=== PATIENT | male | born 1995 | race Caucasian/White ===

== ENCOUNTER 2018-04-01 04:13 | Emergency (ER) | payer OTHER ==
[~2018-04-01] VITALS: Ht 185.4 cm; Wt 88.5 kg
[~2018-04-01 04:13] MED LIST: BACTRIM DS TAB1 EACH PO; HYDROCODONE-AP1 EAC6 PO; PENICILLIN V P500 MG PO
[2018-04-01 04:31] LABS: URINE BILIRUBIN NEGATIVE (Negative); URINE BLOOD NEGATIVE (Negative); URINE CLARITY CLEAR; URINE COLOR YELLOW; URINE GLUCOSE-RANDOM NEGATIVE (Negative); URINE KETONES NEGATIVE (Negative); URINE LEUKOCYTES NEGATIVE (Negative); URINE NITRITE NEGATIVE (Negative); URINE PROTEIN 1+ (Negative); URINE SPECIFIC GRAVITY >= 1.030 (1.005-1.030); URINE UROBILINOGEN 0.2 E.U./dl (0.2-1.0)
[2018-04-01 04:37] LABS: AMP/METHAMP Negative (Negative); BARBITURATES Negative (Negative); BENZODIAZEPINES Negative (Negative); COCAINE Negative (Negative); METHADONE Negative (Negative); OPIATES Negative (Negative); PCP Negative (Negative); THC Negative (Negative)
[2018-04-01 04:45] LABS: HEMATOCRIT 45.4 % (42.0-52.0); HEMOGLOBIN 15.5 gm/dL (14.0-18.0); MCH 31.6 pg (26.0-34.0); MCHC 34.2 g/dL (28.0-37.0); MCV 92.2 fL (80.0-100.0); MPV 9.4 fl. (7.2-11.1); RBC 4.92 mil/uL (4.50-6.00); RDW-CV 15.2 % (10.5-14.5); WBC 5.7 thou/uL (4.0-11.0)
[2018-04-01 04:51] LABS: CALCIUM 9.2 mg/dL (8.5-10.1); CREATININE 1.1 mg/dL (0.6-1.3)
[2018-04-01 05:01] LABS: ALBUMIN 4.2 g/dL (3.4-5.0); TOTAL BILIRUBIN 0.4 mg/dL (<0.1-1.0); TOTAL PROTEIN 8.4 g/dL (6.4-8.2)
[2018-04-01 05:09] LABS: ALCOHOL 278 mg/dL (<10); SALICYLATE 4.9 mg/dL (2.8-20.0)
[2018-04-01 05:13] LABS: ACETAMINOPHEN < 2 ug/mL (10-30)
[2018-04-01 22:32] VITALS: BP 130/81
== END 2018-04-01 22:30 ==
LOC: M.ERS 04:13
PROVIDERS: Personal Emergency Response Attendant
DX: R45.851 Suicidal ideations (principal); F17.210 Nicotine dependence, cigarettes, uncomplicated; Z59.0 Homelessness

== ENCOUNTER 2018-08-16 07:30 | Emergency (ER) | payer OTHER ==
[~2018-08-16] VITALS: Ht 185.4 cm; Wt 88.5 kg
[2018-08-16 07:31] VITALS: BP 148/98
== END 2018-08-16 07:45 | disposition home or self-care (01) ==
LOC: M.ERS 07:30
DX: F15.10 Other stimulant abuse, uncomplicated (principal); F17.210 Nicotine dependence, cigarettes, uncomplicated

== ENCOUNTER 2019-01-12 02:32 | Emergency (ER) | payer OTHER ==
[~2019-01-12] VITALS: Ht 175.3 cm; Wt 99.8 kg
[2019-01-12 03:02] LABS: ABSOLUTE BASOPHILS 0.1 thou/uL (0.0-0.2); ABSOLUTE LYMPHOCYTES 2.1 thou/uL (0.8-5.3); ABSOLUTE MONOCYTES 0.5 thou/uL (0.0-1.2); ABSOLUTE NEUTROPHILS 3.8 thou/uL (1.6-8.1); BASOPHILS 0.8 %; EOSINOPHILS 0.7 %; HEMATOCRIT 44.8 % (42.0-52.0); HEMOGLOBIN 15.5 gm/dL (14.0-18.0); LYMPHOCYTES 31.8 %; MCH 32.2 pg (26.0-34.0); MCHC 34.7 g/dL (28.0-37.0); MCV 92.7 fL (80.0-100.0); MONOCYTES 8.2 %; MPV 10.2 fl. (7.2-11.1); NUCLEATED RBCS 0 /100WBC; PLATELET COUNT* 200 thou/uL (150-400); POLYS 58.5 %; RBC 4.83 mil/uL (4.50-6.00); RDW-CV 14.4 % (10.5-14.5); WBC 6.5 thou/uL (4.0-11.0)
[2019-01-12 03:17] LABS: ALBUMIN 3.9 g/dL (3.4-5.0); CALCIUM 8.6 mg/dL (8.5-10.1); CREATININE 1.2 mg/dL (0.6-1.3); POTASSIUM 3.5 mmol/L (3.5-5.1); TOTAL BILIRUBIN 0.4 mg/dL (<0.1-1.0); TOTAL PROTEIN 7.4 g/dL (6.4-8.2)
[2019-01-12 03:22] LABS: ALCOHOL 332 mg/dL (<10); SALICYLATE < 2.8 mg/dL (2.8-20.0)
[2019-01-12 03:24] LABS: ACETAMINOPHEN < 2 ug/mL (10-30)
[2019-01-12 21:01] LABS: URINE BILIRUBIN NEGATIVE (Negative); URINE BLOOD NEGATIVE (Negative); URINE CLARITY CLEAR; URINE COLOR YELLOW; URINE GLUCOSE-RANDOM NEGATIVE (Negative); URINE KETONES NEGATIVE (Negative); URINE LEUKOCYTES-REFLEX NEGATIVE (Negative); URINE NITRITE-REFLEX NEGATIVE (Negative); URINE PROTEIN NEGATIVE (Negative); URINE SPECIFIC GRAVITY 1.025 (1.005-1.030); URINE UROBILINOGEN 0.2 E.U./dl (0.2-1.0)
[2019-01-12 21:08] LABS: AMP/METHAMP Negative (Negative); BARBITURATES Negative (Negative); BENZODIAZEPINES Negative (Negative); COCAINE Negative (Negative); METHADONE Negative (Negative); OPIATES Negative (Negative); PCP Negative (Negative); THC Negative (Negative)
[2019-01-13 12:45] VITALS: BP 114/60
== END 2019-01-13 12:42 | disposition home or self-care (01) ==
LOC: M.ERS 02:32
PROVIDERS: Emergency Medicine Emergency Medical Services
DX: R45.851 Suicidal ideations (principal); F10.129 Alcohol abuse with intoxication, unspecified; F17.210 Nicotine dependence, cigarettes, uncomplicated

== ENCOUNTER 2019-01-25 22:48 | Emergency (ER) | payer OTHER ==
[~2019-01-25] VITALS: Ht 182.9 cm; Wt 81.7 kg
[2019-01-25 23:19] VITALS: BP 144/94
== END 2019-01-25 23:19 | disposition home or self-care (01) ==
LOC: M.ERS 22:48
DX: F15.10 Other stimulant abuse, uncomplicated (principal); F17.210 Nicotine dependence, cigarettes, uncomplicated

== ENCOUNTER 2019-03-05 20:00 | Emergency (ER) | payer OTHER ==
[~2019-03-05] VITALS: Ht 188 cm; Wt 81.7 kg
[2019-03-05 22:47] LABS: HEMATOCRIT 43.8 % (42.0-52.0); HEMOGLOBIN 15.1 gm/dL (14.0-18.0); MCH 31.7 pg (26.0-34.0); MCHC 34.5 g/dL (28.0-37.0); MCV 91.8 fL (80.0-100.0); MPV 10.7 fl. (7.2-11.1); RBC 4.77 mil/uL (4.50-6.00); RDW-CV 13.6 % (10.5-14.5); WBC 7.1 thou/uL (4.0-11.0)
[2019-03-05 22:56] LABS: CALCIUM 9.5 mg/dL (8.5-10.1); CREATININE 1.3 mg/dL (0.6-1.3); POTASSIUM 3.2 mmol/L (3.5-5.1)
[2019-03-05 23:01] LABS: ALBUMIN 4.5 g/dL (3.4-5.0); TOTAL BILIRUBIN 1.7 mg/dL (<0.1-1.0); TOTAL PROTEIN 8.2 g/dL (6.4-8.2)
[2019-03-05 23:08] LABS: ACETAMINOPHEN < 2 ug/mL (10-30); ALCOHOL 242 mg/dL (<10); SALICYLATE < 2.8 mg/dL (2.8-20.0)
[2019-03-06 08:12] LABS: AMP/METHAMP POSITIVE (Negative); BARBITURATES Negative (Negative); BENZODIAZEPINES Negative (Negative); COCAINE Negative (Negative); METHADONE Negative (Negative); OPIATES Negative (Negative); PCP Negative (Negative); THC Negative (Negative)
[2019-03-06 08:15] LABS: URINE BILIRUBIN NEGATIVE (Negative); URINE BLOOD TRACE (Negative); URINE CLARITY CLEAR; URINE COLOR DARK YELLOW; URINE GLUCOSE-RANDOM NEGATIVE (Negative); URINE KETONES 1+ (Negative); URINE LEUKOCYTES TRACE (Negative); URINE NITRITE NEGATIVE (Negative); URINE PROTEIN 1+ (Negative); URINE SPECIFIC GRAVITY 1.015 (1.005-1.030); URINE UROBILINOGEN 0.2 E.U./dl (0.2-1.0)
[2019-03-06 08:34] LABS: SQUAMOUS >10 Many /LPF (0-3)
[2019-03-06 08:35] LABS: URINE RBC 0-2 Rare /HPF (0-2); URINE WBC 6-15 Few /HPF (0-5)
[2019-03-06 08:36] LABS: MUCUS >6 Heavy strn/LPF (None Seen)
[2019-03-06 08:37] LABS: CRYSTALS None Seen /LPF (None Seen); HYALINE CASTS 4-10 Moderate /LPF (None Seen)
[2019-03-07 09:50] VITALS: BP 127/80
--- NOTE | 2019-03-07 17:13 | EKG ---
[place] [address] ELECTROCARDIOGRAM REPORT Name: EUGENE WELLS Room: [facility]#: [id number] Admission: 03/05/19 Attend Phys: Discharge: 03/07/19 Date of : [birth year] Report #: [id number] THIS REPORT FOR: //name// [facility] ED Test Date: 2019-03-06 Test Time: 19:31:41 Pat Name: EUGENE WELLS Department: Room: Gender: M [employer] Helper: lexx : 1995 Requested By: Suzanne Mireles Order Number: [id number] Diana MD: Zachary Carmona Measurements Intervals [place] Rate: 90 P: 74 NE: 134 QRS: 69 QRSD: 86 T: 54 QT: 367 QTc: 449 Interpretive Statements Sinus rhythm Right atrial enlargement Minimal ST depression, inferior leads Left ventricular hypertrophy No previous ECG available for comparison Electronically Signed On 03-07-2019 17:12:50 CDT by Zachary Carmona [email or web address] <ELECTRONICALLY SIGNED> By: Zachary Carmona MD, [facility] 03/07/19 1712 30 30 Zachary Carmona MD, FACC /EPI
== END 2019-03-07 09:54 | disposition home or self-care (01) ==
LOC: M.ERS 20:00
PROVIDERS: Personal Emergency Response Attendant
DX: F23 Brief psychotic disorder (principal); F32.9 Major depressive disorder, single episode, unspecified; F10.129 Alcohol abuse with intoxication, unspecified; Y90.8 Blood alcohol level of 240 mg/100 ml or more; R45.851 Suicidal ideations; F17.210 Nicotine dependence, cigarettes, uncomplicated